=== PATIENT | female | born 1940 | race Caucasian/White ===

== ENCOUNTER → 2018-07-04 | Outpatient (REF) | payer MEDICARE ==
[~2018-07-04] MED LIST: ADLT ASA LOW81 MG PO; ALBUTEROL90 MCG IN; AVELOX400 MG PO; CELLCEPT500 MG OR; CHANTIX1 MG OR; CRESTOR10 MG OR; GLYCOLAX3350 N1 OR; LEVOTHYROXIN75 MCG OR; LEVOTHYROXIN88 MC1 PO; LISINOP/HCTZ1 TA1 OR; MESTINON60 MG PO; NAPROSYN500 MG OR; PRAVASTATIN40 MG PO; PREDNISONE10 MG PO; PREDNISONE20 MG PO; PRILOSEC20 MG OR; SPIRIVA IN; [UNRECOGNIZED DRUG - CODE]
== END | disposition home or self-care (01) ==
LOC: DI 11:59
PROVIDERS: ATTEND Physician Assistant Medical
DX: R06.2 Wheezing (principal)

== ENCOUNTER → 2018-07-07 | Outpatient (REF) | payer MEDICARE ==
[2018-07-07 07:56] LABS: HEMOGLOBIN 12.7 g/dl (12.0-16.0); IMMATURE GRANULOCYTES 0.7 % (0.0-5.0); MEAN CELL VOLUME 96.4 fL CALC (80.0-100.0); MEAN CORPUSCULAR HGB 30.6 pG CALC (26.0-32.0); MEAN CORPUSCULAR HGB CONC 31.8 g/L CALC (32.0-36.0); NEUT# 3.91 thou/uL (2.00-7.15); RED BLOOD COUNT 4.15 mill/uL (4.20-5.60); RED CELL DISTRI WIDTH 13.2 % (11.5-15.5)
[2018-07-07 08:15] LABS: ALBUMIN 4.3 g/dL (3.2-5.0); ALKALINE PHOSPHATASE 57 u/l (38-126); ANION GAP 14 (6-22 (CALC)); BILIRUBIN, TOTAL 0.4 mg/dL (0.0-1.4); BUN 28 mg/dL (8-23); BUN/CREATININE RATIO 34 (12-20 (CALC)); CALCULATED LDLCHOLESTEROL 110 mg/dL (62-129 (CALC)); CARBON DIOXIDE 31 mmol/l (22-30); CHLORIDE 96 mmol/l (95-108); CHOLESTEROL HDL RATIO 2.8 (<4.4 (CALC)); CREATININE 0.8 mg/dL (0.5-1.0); GFR > 60 ML/MIN (>=60 (CALC)); GFR FOR AFR.AMER. > 60 ML/MIN (>=60 (CALC)); HDL CHOLESTEROL 73 mg/dL (>=40); SGOT/AST 16 u/l (9-36); SODIUM 136 mmol/l (137-146); TOTAL CHOLESTEROL 205 mg/dl (0-199); TOTAL PROTEIN 6.6 g/dL (6.3-8.2); TOTAL TRIGLYCERIDES 110 mg/dl (30-149); VLDL CHOLESTROL 22 mg/dl (0-48 (CALC))
[2018-07-07 08:45] LABS: TSH, 3RD GENERATION 1.37 uIU/mL (0.47 - 4.68)
== END | disposition home or self-care (01) ==
LOC: LAB 07:33
PROVIDERS: ATTEND Internal Medicine
DX: E03.9 Hypothyroidism, unspecified (principal); I10 Essential (primary) hypertension

== ENCOUNTER 2019-07-08 | Day surgery (SDC) | payer MEDICARE ==
[~2019-07-08] MED LIST changes: +HYZAAR1 TA1 PO; +MICONAZOLE EX; +MYRBETRIQ50 MG PO; +OMEGA 3-6-9 COMPLEX PO; +PROCRIT2000 UNIT/; +PROTONIX40 M2 PO; +SILDENAFIL CITR25 MG PO; +SPIRIVA HANDIH18 MCG IN; +SPIRONOLACT25 MG PO; +[UNRECOGNIZED DRUG - CODE] EX
== END 2019-07-08 10:55 | disposition home or self-care (01) ==
PROC: 0DBE8ZX Excision of Large Intestine, Via Natural or Artificial Opening Endoscopic, Diagnostic (ICD-10-PCS; principal; 2019-07-08)
DX: K57.31 Diverticulosis of large intestine without perforation or abscess with bleeding (principal); Q43.8 Other specified congenital malformations of intestine; K64.4 Residual hemorrhoidal skin tags; K64.8 Other hemorrhoids; J44.9 Chronic obstructive pulmonary disease, unspecified; Z99.81 Dependence on supplemental oxygen

== ENCOUNTER 2020-01-25 11:23 | Inpatient (IN) | payer MEDICARE ==
[~2020-01-25] VITALS: Ht 157.5 cm; Wt 73.5 kg
--- NOTE | 2020-01-25 11:23 | NUR ---
TO ROOM 16 VIA WHEELCHAIR FOR BEDSIDE TRIAGE.
--- NOTE | 2020-01-25 12:30 | NUR ---
PT RESTING ON STRETCHER WITH HOB ELEVATED. RESPS LABORED ON O2 VIA NC, MONITORS ATTACHED. CALL LIGHT WITHIN REACH.
[2020-01-25 12:52] LABS: HEMATOCRIT 39.5 % (37.0-47.0); HEMOGLOBIN 12.4 g/dl (12.0-16.0); IMMATURE GRANULOCYTES 0.2 % (0.0-5.0); MEAN CELL VOLUME 90.6 fL CALC (80.0-100.0); MEAN CORPUSCULAR HGB 28.4 pG CALC (26.0-32.0); MEAN CORPUSCULAR HGB CONC 31.4 g/dL CAL (32.0-36.0); NEUT# 4.07 thou/uL (2.00-7.15); RED BLOOD COUNT 4.36 mill/uL (4.20-5.60); RED CELL DISTRI WIDTH 12.4 % (11.5-15.5)
[2020-01-25 13:02] LABS: INTERNATIONAL NORMALIZED RATIO 1.1 RATIO (0.7-1.3)
[2020-01-25 13:06] LABS: ALKALINE PHOSPHATASE 61 u/l (38-126); ANION GAP 13 (6-22 (CALC)); BUN 20 mg/dL (8-23); BUN/CREATININE RATIO 26 (12-20 (CALC)); CARBON DIOXIDE 27 mmol/l (22-30); CHLORIDE 94 mmol/l (95-108); CREATININE 0.8 mg/dL (0.5-1.0); GFR > 60 ML/MIN (>=60 (CALC)); GFR FOR AFR.AMER. > 60 ML/MIN (>=60 (CALC)); POTASSIUM 3.7 mmol/l (3.5-5.1); SODIUM 130 mmol/l (137-146); TOTAL PROTEIN 6.8 g/dL (6.3-8.2)
[2020-01-25 13:07] LABS: SGOT/AST 35 u/l (9-36)
[2020-01-25 13:17] LABS: MYOGLOBIN 117 ng/mL (0 - 62)
--- NOTE | 2020-01-25 14:05 | NUR ---
TO RADIOLOGY ON O2 VIA NC IN STABLE CONDITION VIA STRTECHER.
[2020-01-25 14:11] LABS: C-REACTIVE PROTEIN 8.8 mg/dL (0-0.9)
[2020-01-25 14:13] LABS: URINE BLOOD DIPSTICK SMALL (NEGATIVE); URINE GLUCOSE - DIPSTICK NEGATIVE (NEGATIVE); URINE KETONE TRACE mg/dL (NEGATIVE); URINE NITRITE - DIPSTICK NEGATIVE (Negative); URINE PH 5.5 (4.5-8.0); URINE PROTEIN - DIPSTICK NEGATIVE (NEG-TRACE)
[2020-01-25 14:15] LABS: URINE BILIRUBIN - DIPSTICK SMALL (NEGATIVE); URINE COLOR DK. YELLOW; URINE LEUK ESTERASE SMALL (NEGATIVE)
[2020-01-25 14:16] LABS: URINE BACTERIA FEW hpf; URINE EPITHELIAL CELLS FEW EPI/hpf (0-FEW)
--- NOTE | 2020-01-25 14:28 | NUR ---
RETURNED FROM RADIOLOGY VIA STRETCHER. PT UNABLE TO LAY FLAT ENOUGH FOR EXAM. MD NOTIFIED.
--- NOTE | 2020-01-25 15:30 | NUR ---
PT RESTING ON STRETCHER WITH HOB ELEVATED. RESPS LABORED ON O2 VIA NC. NO NEEDS VOICED AT THIS TIME.
--- NOTE | 2020-01-25 16:30 | NUR ---
ASSISTED PT TO BEDSIDE COMMODE.
--- NOTE | 2020-01-25 16:38 | NUR ---
NURSE TO NURSE REPORT CALLED TO EMILI DASH.
--- NOTE | 2020-01-25 16:40 | NUR ---
TO ROOM 281 ON O2 VIA NC VIA STRETCHER.
--- NOTE | 2020-01-25 16:51 | NUR ---
PT ARRIVED TO UNIT VIA WHEELCHAIR IN STABLE CONDITION; ALERT AND ORIENTED. ADMITTED TO AIRBORNE/CONTACT PRECAUTIONS FOR POSITIVE COVID RESULTS OUTPATIENT. AMBULATED TO BED WITH UNSTEADY GAIT; ADMITS TO AMBULATING WITH WALKER AT HOME. C/O GENERALIZED CHRONIC PAIN THAT IS MILD. RESPIRATIONS LABORED WITH EXERTION; RPM 30; SPO2 93% ON 5L ON OXYGEN. PT WEARS 3L OF O2 AT HOME WHILE AT REST; REPORTS INCREASING UP TO 5L AT HOME WHEN SHE FEELS IT IS NECESSARY. VSS. LUNG SOUNDS ARE DIMINISHED; TRACE EDEMA TO ANKLES. NON PRODUCTIVE COUGH. ORIENTED TO R00M AND CALL LIGHT SYSTEM. PLAN OF CARE DISCUSSED. PT ENCOURAGED TO VERBALIZE CONCERNS. STATES UNDERSTANDING. SAFETY MEASURES IN PLACE. CALL LIGHT WITHIN REACH.
[2020-01-25 17:00] VITALS: BP 123/59
--- NOTE | 2020-01-25 17:00 | NUR ---
SLOAN BUTLER AT BEDSIDE. PT ADMITS TO LEFT MASTECTOMY; LEFT LIMP ALERT APPLIED. PT REPORTS DIARRHEA AND WEARS PADS FOR RECTAL BLEEDING WHICH SHE STATES IS FROM IRRIATED HEMORHOIDS.
--- NOTE | 2020-01-25 18:14 | NUR ---
DAUGHTER CALLED FOR UPDATE ON ADMISSION; QUESTIONS ABOUT ADMISSION ANSWERED. , ALEXIS, UPDATED ON ADMISSION WELL.
[2020-01-25 18:45] VITALS: BP 119/59
--- NOTE | 2020-01-25 19:00 | NUR ---
RECEIVED REPORT FROM ED PATIENT AWAKE WATCHING TV, DENIES PAIN OR DISCOMFORT REMAINS ON ISOLATION PRECAUTION, CALL LIGHT AT REACH.
[2020-01-25 19:32] VITALS: BP 118/63
--- NOTE | 2020-01-25 20:23 | NUR ---
RECEIVED PHONE CALL FROM ED PATIENT TELE AFIBE, NO PAST MEDICAL HX OF AFIB, V/S TAKEN AND EKG ORDERED, NOTIFIED DR. PULLIAM, NO NEW ORDERS MADE AT THIS TIME. WILL CONTINUE TO MONITOR.
[2020-01-26] VITALS (21 sets, daily range): BP systolic 93–139; BP diastolic 50–76
--- NOTE | 2020-01-26 | NUR ---
PATIENT RESTING IN BED WITH EYE SCLOSED, BREATHING SHALLOW UNLABORED, REMAINS ON O2 @ 5LPM VIA NC CALL LIGHT AT REACH.
--- NOTE | 2020-01-26 03:31 | NUR ---
CALLED DR. PEREZ informed of pox 86-89 % on 5lpm via nc, lung sounds diminished with orders to send to icu.
--- NOTE | 2020-01-26 04:00 | NUR ---
PATIENT TRANSPORTED VIA BED, REPORT GIVEN TO NURSE NAVARRO.
--- NOTE | 2020-01-26 04:09 | NUR ---
TO ICU VIA BED PT DESATURATING.O2 AT 5L/MIN VIA N/C. PT STATES SHE USES 3-5 LITER OF O2 AT HOME ALL OF THE TIME. VERY TALKATIVE. NEEDED REMINDING TO STOP TALKING AND BREATHE THROUGH MOUTH. WHEN PT CALMS AND STOPS TALKING SAT INCREASED TO 93%. REPORTED COVID POSITIVE AT DOCTOR'S OFFICE 01/21/20 AND IGG POSITIVE ON ADMISSION. LEFT LINB ALERT DUE TO MASTECTOMY 30+ YEARS AGO. HL RIGHT A/C.
--- NOTE | 2020-01-26 04:13 | NUR ---
HOB ELEVATED. PT REPORTS SHE CANNOT HAVE HEAD ANY LOWER THAN IT IS NOW-60 DEGREES
--- NOTE | 2020-01-26 04:17 | NUR ---
PT WANTED TO GET UP TO BSC, BUT AGREED TO USE BEDPAN SHE IS SO SOB. SHE ATTEMPTED TO VOID. DURING WHICH TIME O2 SAT DECREASED TO 84%. FINALLY, ESCOTO REMOVED AND PT RESTING. COACHED TO BREATHE IN THROUGH NOSE AND OUT THROUGH PURSED LIPS. WITH IN A MINUTE OR TWO, SAT INCREASED TO 92% AND BREATHING EASED. REMAINS ON AIRBORNE PRECAUTIONS. IN ICU 1.
--- NOTE | 2020-01-26 04:48 | NUR ---
LAB HERE FOR BLOOD DRAW RX-TOLERATED WELL. AFTER, PT ON BEDPAN WITH NO RESULTS OTHER THAN SAT DROPPED TO 85% WHILE ATTEMPTING TO VOID. OFFERED [employer] WHICH COLLECTS URINE. PT DECLINED STATING EVER TIME SHE URINATES, SHE HAS DIARRHEA BECAUSE OF ABT AND COVID. OFFERED [employer]AS, PT DECLINED AT THIS TIME. SHE ALSO SAID THAT SHE IS AFRAID TO GO TO SLEEP BECUAE SHE IS AFRAID THAT SHE WILL NOT WAKE
--- NOTE | 2020-01-26 04:59 | NUR ---
TRIED TO CALL PATIENT NEXT OF KIN, NO ANSWER LEFT VOICEMEIL TO CALL BACK.
[2020-01-26 05:00] LABS: ALBUMIN 3.7 g/dL (3.2-5.0); ALKALINE PHOSPHATASE 58 u/l (38-126); ANION GAP 14 (6-22 (CALC)); BILIRUBIN, TOTAL 0.6 mg/dL (0.0-1.4); BUN 17 mg/dL (8-23); BUN/CREATININE RATIO 28 (12-20 (CALC)); CARBON DIOXIDE 26 mmol/l (22-30); CHLORIDE 98 mmol/l (95-108); CREATININE 0.6 mg/dL (0.5-1.0); GFR > 60 ML/MIN (>=60 (CALC)); GFR FOR AFR.AMER. > 60 ML/MIN (>=60 (CALC)); POTASSIUM 3.8 mmol/l (3.5-5.1); SGOT/AST 32 u/l (9-36); SODIUM 135 mmol/l (137-146)
--- NOTE | 2020-01-26 05:01 | NUR ---
O2 SAT 92% WHILE BEDRESTING
--- NOTE | 2020-01-26 05:29 | NUR ---
SAT REMAINS 93% WHILE QUIETLY BEDRESTING WITH O2 AT 5L/MIN VIA N/C. PT REMAINS A.FIB AT 92.
[2020-01-26 06:10] LABS: HEMATOCRIT 38.9 % (37.0-47.0); HEMOGLOBIN 12.3 g/dl (12.0-16.0); MEAN CELL VOLUME 90.7 fL CALC (80.0-100.0); MEAN CORPUSCULAR HGB 28.7 pG CALC (26.0-32.0); MEAN CORPUSCULAR HGB CONC 31.6 g/dL CAL (32.0-36.0); NEUT# 0.68 thou/uL (2.00-7.15); RED BLOOD COUNT 4.29 mill/uL (4.20-5.60); RED CELL DISTRI WIDTH 12.2 % (11.5-15.5)
--- NOTE | 2020-01-26 06:27 | NUR ---
RESTING WITH EYES CLOSED SAT 94%. NO DISTRESS NOTED
--- NOTE | 2020-01-26 07:00 | NUR ---
REPORT RECEIVED FROM HARDY NAVARRO. PT RESTING IN BED SEMI FOWLERS; ALERT AND ORIENTED. C/O CHRONIC GENERALIZED PAIN. RESPIRATIONS SLIGHTLY LABORED WITH EXERTION OF TALKING; SPO2 91-93% ON 5L VIA NC. VSS. REMAINS ON AIRBORNE/CONTACT PRECAUTIONS FOR POSITIVE COVID RESULTS. PLAN OF CARE REVIEWED. PT ENCOURAGED TO VERBALIZE CONCERNS. STATES UNDERSTANDING. SAFETY MEASURES IN PLACE. CALL LIGHT WITHIN REACH.
--- NOTE | 2020-01-26 08:00 | NUR ---
ALL AM MEDICATIONS PROVIDED. PT REPOSITIONED INTO HIGH FOWLERS FOR BREAKFAST.
--- NOTE | 2020-01-26 08:19 | NUR ---
DR. OLIVEIRA AT BEDSIDE.
--- NOTE | 2020-01-26 09:09 | NUR ---
PT note Patient is screened for intervention and she may benefit from pulmonary toilet and increased activity with pulmonary monitoring if medical agrees
--- NOTE | 2020-01-26 09:25 | NUR ---
UP TO BSC FOR VOID AND SMALL LOOSE BOWEL MOVEMENT; ASSISTED WITH HYGIENE. PT DID DESAT TO 85% DURING EXERTION AND RETURNS TO 91-92% WITH REST. REPOSITIONED UP INTO BEDSIDE CHAIR; SET UP TO BRUSH TEETH. HAPPY TO BE SITTING UP. REPORTS DECREASED APPETITE. SINUS ARRHYTHMIA ON COMMUNITY MARKETING COORDINATOR WITH HEART RATE RANGING FROM 90S-120S; PAC'S, PVC'S, IVCD; HR IRREGULAR. WILL CONTINUE TO MONITOR.
--- NOTE | 2020-01-26 10:05 | NUR ---
FIRST DOSES OF DECADRON AND REMDESIVIR ADMINISTERED AND PT EDUCATED ON NEW MEDS. ALEXIS COLEMAN, CALLED AND UPDATED ON TRANSFER TO ICU; STATES UNDERSTANDING.
--- NOTE | 2020-01-26 11:19 | NUR ---
DR. CABEZAS AT [facility] BEDSIDE FOR HEMATOLOGY CONSULT.
--- NOTE | 2020-01-26 13:27 | NUR ---
AGAIN UP TO BSC AND BACK TO CHAIR. PLEASANT AND TALKATIVE. REMAINS ON 5L OXYGEN VIA NC; SPO2 89-93%. IV SITE APPEARS HEATLHY AND FLUSHES. NO REQUESTS OR CONCERNS AT THIS TIME. CALL LIGHT WITHIN REACH.
--- NOTE | 2020-01-26 15:15 | NUR ---
LAB AT BEDSIDE. LEVAQUIN INFUSING WITHOUT DIFFICULTY; IV SITE APPEARS HEALTHY.
[2020-01-26 15:17] LABS: HEMATOCRIT 40.5 % (37.0-47.0); HEMOGLOBIN 12.9 g/dl (12.0-16.0); IMMATURE GRANULOCYTES 0.2 % (0.0-5.0); MEAN CELL VOLUME 89.6 fL CALC (80.0-100.0); MEAN CORPUSCULAR HGB 28.5 pG CALC (26.0-32.0); MEAN CORPUSCULAR HGB CONC 31.9 g/dL CAL (32.0-36.0); NEUT# 4.11 thou/uL (2.00-7.15); RED BLOOD COUNT 4.52 mill/uL (4.20-5.60); RED CELL DISTRI WIDTH 12.2 % (11.5-15.5)
--- NOTE | 2020-01-26 19:00 | NUR ---
REPORT RECEIVED FROM Mariama DE LOS SANTOS RN, CARE OF PT ASSUMED AT THIS TIME.
--- NOTE | 2020-01-26 19:45 | NUR ---
PT SITTING UP IN CHAIR, REPORTS SHE SLEEPS BETTER SITTING UP AND PLANS TO STAY IN CHAIR FOR THE NIGHT. PT STATES SHE IS UNABLE TO TOLERATE PRONE POSITION WHEN EDUCATED ON LAYING PRONE TO MAXIMIZE PULMONARY EXPANSION. WITNESSED PT UP TO BSC INDEPENDENTLY, PT'S GAIT IS STEADY AND BALANCED. PT CONSUMED APPROX 75% OF DINNER MEAL TRAY, REQUESTS REMAINDER TO BE TAKEN AWAY. REPORTS POOR APPATITE AND LOOSE STOOLS. PT ATTRIBUTES LOOSE STOOLS TO CELLCEPT. REPORTS FREQUENT VOIDING WITH SMALL AMOUNTS. BSC EMPTIED OF APPROX 100ML CLEAR YELLOW URINE AND SCANT AMOUNT SOFT STOOL. NASAL CANNULA @ 5L/min SWITCHED TO A HIGH FLOW NASAL CANNULA WITH FIO2 OF 5L/min HUMIDIFIED. PHYSICAL ASSESMENT COMPLETE. PLAN OF CARE REVIEWED. PT DENIES QUESTIONS AND VERBALIZES UNDERSTANDING. DENIES FURTHER NEEDS AT THIS TIME. CALL DODSON WITHIN REACH, AGREES TO CALL PRN. UNDERSTANDING.
--- NOTE | 2020-01-26 20:54 | NUR ---
PT HAS CELLCEPT SCRIPT FROM HOME, SCRIPT HAS BEEN LABELED AND BARCODED BY PHARMACY. DIRECTIONS ON BOTTLE STATES 500MG (1TAB) PO BID. DIRECTIONS ON PHARMACY LABEL STATES 1000MG (2 TABS) PO BID. Amadeo BREWER RN CALLS Amadeo Hall PharmD TO CLARIFY. PER Amadeo Hall DOSE HAS BEEN CLARIFIED WITH PRESCRIBING DOCTORS OFFICE, DR. BEACH. STATES MEDICATION TO BE ADMINISTERED PER E-MAR AND PHARMACY PRINTED LABEL.
--- NOTE | 2020-01-26 21:14 | NUR ---
SCHEDULED MEDICATIONS ADMINISTERED. PT REPORTS SHE IS ONLY MEANT TO TAKE ONE 500MG CELLCEPT. REPORTED TO PT THAT DOSE HAS BEEN CLARIFIED WITH PHARMACIST AND DR. BEACH (PRESCRIBING MD). PT AGREES TO TAKE DOSE. SEE E-MAR. BEDSIDE COMMODE EMPTIED OF SMALL AMOUNT CLEAR YELLOW URINE AND SCANT AMOUNT SOFT STOOL. DENIES FURTHER NEEDS, CALL DODSON WITHIN REACH, AGREES TO CALL PRN.
--- NOTE | 2020-01-26 22:33 | NUR ---
SCHEDULED MEDICATION ADMINISTERED, SEE E-MAR. NEW TOILET PAPER ROLL AND MOUTH/LIP MOISTUREIZURE PER HER REQUEST. DENIES FURTHER NEEDS, CALL DODSON WITHIN REACH, AGREES TO CALL PRN.
--- NOTE | 2020-01-26 23:17 | NUR ---
PHARMACY CONSULT ENTERED FOR FURTHER CLARIFICATION ON CELLCEPT DOSE TO REASSURE PT OF CORRECT DOSE.
[2020-01-27] VITALS (33 sets, daily range): BP systolic 71–137; BP diastolic 46–83
--- NOTE | 2020-01-27 00:09 | NUR ---
PT SITTING UP IN RECLINER, WATCHING TV, DENIES NEEDS AT THIS TIME. CALL DODSON WITHIN REACH, AGREES TO CALL PRN.
--- NOTE | 2020-01-27 02:00 | NUR ---
PT SITTING UP IN CHAIR, APPEARS TO BE SLEEPING COMFORTABLY, NO APPARENT DISTRESS, RESPIRATIONS REGULAR AND UNLABORED. CALL DODSON REMAINS WITHIN REACH.
--- NOTE | 2020-01-27 04:02 | NUR ---
PT SITTING UP IN CHAIR, APPEARS TO BE SLEEPING COMFORTABLY, NO APPARENT DISTRESS, RESPIRATIONS REGULAR AND UNLABORED. CALL DODSON REMAINS WITHIN REACH.
--- NOTE | 2020-01-27 04:29 | NUR ---
SUPPORT SERVICE TECH VALARIE IN ROOM TO COLLECT AM LABS
[2020-01-27 04:50] LABS: HEMATOCRIT 43.4 % (37.0-47.0); HEMOGLOBIN 13.7 g/dl (12.0-16.0); IMMATURE GRANULOCYTES 0.4 % (0.0-5.0); MEAN CELL VOLUME 89.9 fL CALC (80.0-100.0); MEAN CORPUSCULAR HGB 28.4 pG CALC (26.0-32.0); MEAN CORPUSCULAR HGB CONC 31.6 g/dL CAL (32.0-36.0); NEUT# 8.47 thou/uL (2.00-7.15); RED BLOOD COUNT 4.83 mill/uL (4.20-5.60); RED CELL DISTRI WIDTH 12.2 % (11.5-15.5)
--- NOTE | 2020-01-27 05:00 | NUR ---
BSC EMPTIED OF CLEAR YELLOW URINE, SCANT AMOUNT OF SOFT STOOL, AND TOILET PAPER. DENIES FURTHER NEEDS. CALL DODSON WITHIN REACH, AGREES TO CALL PRN.
[2020-01-27 05:12] LABS: ALBUMIN 4.2 g/dL (3.2-5.0); ALKALINE PHOSPHATASE 60 u/l (38-126); ANION GAP 16 (6-22 (CALC)); BILIRUBIN, TOTAL 0.5 mg/dL (0.0-1.4); BUN 30 mg/dL (8-23); BUN/CREATININE RATIO 41 (12-20 (CALC)); C-REACTIVE PROTEIN 5.2 mg/dL (0-0.9); CARBON DIOXIDE 25 mmol/l (22-30); CHLORIDE 98 mmol/l (95-108); CREATININE 0.7 mg/dL (0.5-1.0); GFR > 60 ML/MIN (>=60 (CALC)); GFR FOR AFR.AMER. > 60 ML/MIN (>=60 (CALC)); POTASSIUM 4.1 mmol/l (3.5-5.1); SGOT/AST 40 u/l (9-36); SODIUM 135 mmol/l (137-146); TOTAL PROTEIN 6.8 g/dL (6.3-8.2)
--- NOTE | 2020-01-27 06:45 | NUR ---
PT'S DAUGHTER CALLS REQUESTING PRIVILEGES TO SEE PT DESPITE HOSPITAL POLICY REGARDING COVID POSITIVE PATIENTS. ADVISED DAUGHTER HER REQUEST WOULD BE ENDORSED TO CLINICAL GLASS BULB SILVERER. MESSAGE ENDORSED TO Elizabeth CHAVEZ RN WITH REPORT AND ENDORSED TO Fabián BAHENA RN, CLINICAL GLASS BULB SILVERER.
--- NOTE | 2020-01-27 07:52 | NUR ---
PT REPORTS ALLERGY TO PENICILLIN. MEROPENEM ORDERED FOR ESBL E COLI UTI DESPITE ALLERGY AND POSSIBILITY FOR CROSS SENSITIVITY. SPOKE WITH LUKE, WOULD LIKE TO GIVE MEROPENEM. SPOKE WITH CHU, ASKED TO MONITOR PT FOR S/SX OF ALLERGIC RXN.
--- NOTE | 2020-01-27 08:00 | NUR ---
PT SEEN AWAKE, ALERT, ORIENTED X 3, OOB IN CHAIR AT BEDSIDE. LUNGS ARE CLEAR, PT USES 5 LPM NC, SEEN TO DESAT INTO THE 80s WITH MINIMAL EXERTION. PT IS ABLE TO TRANSFER HERSELF TO BSC SAFELY. MINIMAL PEDAL EDEMA NOTED, PT ATTRIBUTES TO SITTING UP WITH FEET DOWN. HR SEEN IRREGULAR AND RAPID INTO THE 130s, DOES NOT AFFECT PT'S SHORTNESS OF BREATH. BREAKFAST PROVIDED, PT ATE MINIMAL AMOUNT.
--- NOTE | 2020-01-27 10:05 | NUR ---
PT RECEIVING MEROPENEM WITHOUT ADVERSE REACTION TO THIS POINT. PT ALSO PROVIDED WITH MESH PANTIES AND ABD PADS FOR PERSONAL HYGIENE. DR PEREZ AND LUKE PIKE HAVE SEEN PT, AWAITING CONSULT FROM DR WESLEY ON TELEMEDICINE.
--- NOTE | 2020-01-27 10:41 | NUR ---
DAUGHTER ARIANA HAS ARRIVED FOR A VISIT.
--- NOTE | 2020-01-27 11:59 | NUR ---
PT'S DAUGHTER ARIANA HAS GONE, VISIT WENT WELL. PT SEEN TO BE IN RAPID HR IN THE 130-150 RANGE, RECEIVABLE EXECUTIVE AWARE, EKG ORDERED.
--- NOTE | 2020-01-27 13:11 | NUR ---
CONSULT WITH DR WESLEY BEING COMPLETED VIE TELEHEALTH AT THIS TIME.
--- NOTE | 2020-01-27 13:29 | NUR ---
PT BOLUSED WITH CARDIZEM 10 MG IVP , BP DROPPED INTO THE 70s, ASYMPTOMATIC. GLENDY BUTLER NOTIFIED. HR SLIGHTLY IMPROVED, 110 RANGE.
--- NOTE | 2020-01-27 16:16 | NUR ---
FURTHER ATTEMPT MADE TO RESTART CARDIZEM DRIP, THIS TIME AT 2.5 MG/HR. WILL MONITOR CLOSELY. HR REMAINS IN THE LOW 100s, BPs AROUND 90 SYSTOLIC.
--- NOTE | 2020-01-27 18:04 | NUR ---
CARDIZEM DRIP CONTINUES AT 2.5 MG/HR, HR REMAINS UNDER 125-130 AT FASTEST. PT ENJOYED SUPPER, WHICH WAS MOSTLY LIQUIDS. NO REPORT OF SHORTNESS OF BREATH, NO FEVER. DAUGHTER ELIZ CALLED AND WAS UPDATED ON PT STATUS.
--- NOTE | 2020-01-27 19:00 | NUR ---
REPORT RECEIVED FROM Elizabeth CHAVEZ RN, CARE OF PT ASSUMED AT THIS TIME.
--- NOTE | 2020-01-27 19:30 | NUR ---
PT SITTING UP IN BED, TALKING ON CELLPHONE, NO APPARENT DISTRESS, APPEARS COMFORTABLE. CALL DODSON WITHIN REACH.
--- NOTE | 2020-01-27 20:00 | NUR ---
SITTING UP IN CHAIR SLEEPING, WAKES EASILY. PHYSICAL ASSESMENT COMPLETE. PT DENIES NEEDS AT THIS TIME. PLAN OF CARE REVIEWED. PT VERBALIZES UNDERSTANDING AND DENIES QUESTIONS. CALL DODSON WITHIN REACH, AGREES TO CALL PRN.
--- NOTE | 2020-01-27 20:45 | NUR ---
SCHEDULED MEDICATIONS ADMINISTERED, SEE E-MAR. SBP IN THE 70'S, AFIB 80'S-90'S. CARDIZEN GTT STOPPED. WILL CONTINUE TO MONITOR.
--- NOTE | 2020-01-27 23:02 | NUR ---
SCHEDULED MEDICATION ADMINISTERED, SEE E-MAR. FRESH WATER PROVIDED. BSC EMPTIED OF CLEAR YELLOW URIN AND SCANT ANOUNT SOFT BROWN STOOL AND TOILET PAPER. DENIES FURTHER NEEDS. CALL DODSON WITHIN REACH, AGREES TO CALL PRN.
[2020-01-28] VITALS (19 sets, daily range): BP systolic 78–147; BP diastolic 45–73
--- NOTE | 2020-01-28 01:43 | NUR ---
BLANKETS AND PILLOWS ON PTS CHAIR REPOSITIONED FOR COMFORT PER PT'S REQUEST. DENIES FURTHER NEEDS, CALL DODSON WITHIN REACH, AGREES TO CALL PRN.
--- NOTE | 2020-01-28 03:15 | NUR ---
WARM BLANKET PROVIDED FOR PT BY Amadeo DODD RN PER PTS REQUEST.
--- NOTE | 2020-01-28 04:28 | NUR ---
PT SITTING UP IN CHAIR, APPEARS TO BE SLEEPING COMFORTABLY, NO APPARENT DISTRESS, RESPIRATIONS REGULAR AND UNLABORED. CALL DODSON REMAINS WITHIN REACH.
--- NOTE | 2020-01-28 04:55 | NUR ---
FORENSIC ACCOUNTANT VALARIE IN ROOM TO COLLECT AM LABS.
[2020-01-28 05:17] LABS: HEMATOCRIT 41.6 % (37.0-47.0); HEMOGLOBIN 13.4 g/dl (12.0-16.0); IMMATURE GRANULOCYTES 0.6 % (0.0-5.0); MEAN CELL VOLUME 89.8 fL CALC (80.0-100.0); MEAN CORPUSCULAR HGB 28.9 pG CALC (26.0-32.0); MEAN CORPUSCULAR HGB CONC 32.2 g/dL CAL (32.0-36.0); NEUT# 5.37 thou/uL (2.00-7.15); RED BLOOD COUNT 4.63 mill/uL (4.20-5.60); RED CELL DISTRI WIDTH 12.5 % (11.5-15.5)
[2020-01-28 05:26] LABS: ALBUMIN 3.9 g/dL (3.2-5.0); ALKALINE PHOSPHATASE 59 u/l (38-126); ANION GAP 15 (6-22 (CALC)); BILIRUBIN, TOTAL 0.5 mg/dL (0.0-1.4); BUN 30 mg/dL (8-23); BUN/CREATININE RATIO 46 (12-20 (CALC)); CARBON DIOXIDE 23 mmol/l (22-30); CHLORIDE 101 mmol/l (95-108); CREATININE 0.7 mg/dL (0.5-1.0); GFR > 60 ML/MIN (>=60 (CALC)); GFR FOR AFR.AMER. > 60 ML/MIN (>=60 (CALC)); MAGNESIUM 2.1 mg/dL (1.6-2.3); POTASSIUM 4.2 mmol/l (3.5-5.1); SGOT/AST 28 u/l (9-36); SODIUM 134 mmol/l (137-146); TOTAL PROTEIN 6.5 g/dL (6.3-8.2)
--- NOTE | 2020-01-28 07:55 | NUR ---
ASSESSMENT IS COMPLETED: IV SITE IS FREE FROM REDNESS OR EDEMA. HR IS REG,PULSES ARE STRONG X4, ABD IS SOFT WITH ACTIVE BS. BREATH SOUNDS ARE CLEAR AND DIMINSHED. O2 @ 5 LITERS WITH NC. HRT MONITOR IN PLACE. CONTINUE TO OBSERVE AND MONITOR.
--- NOTE | 2020-01-28 08:30 | NUR ---
HEART RATE ELEVATED DURING REST IN THE 120'S; WHEN UP TO BSC HR INCREASES INTO THE 170'S; SOB ON EXERTION WELL; PT STATES THAT SHE IS OK AND BESIDES SOB SHE IS OTHERWISE ASMPTOMATIC. DR. ALFARO NOTIFIED OF TACHYCARDIA.
--- NOTE | 2020-01-28 09:00 | NUR ---
DR. PEREZ AND SLOAN BUTLER AT BEDSIDE FOR EVAL. VERBAL ORDERS RECEIVED.
--- NOTE | 2020-01-28 10:00 | NUR ---
PO CARDIZEM ADMINISTERED PER ORDERS FOR TACHYCARDIA; PT NOW SITTING UP IN BEDSIDE CHAIR. PULMICORT INHALER ALSO GIVEN AND EDUCATED ON. PT REQUESTS FOR IV SITE TO RAC BE CHANGED OR REPLACED; SITE D/C'D AND NEW SITE STARTED TO RIGHT WRIST; PT TOLERATED WELL. SITE APPEARS HEATLHY AND FLUSHES WITH GOOD BLOOD RETURN. WILL CONTINUE TO MONITOR.
--- NOTE | 2020-01-28 10:21 | NUR ---
HEART RATE CURRENTLY 107-118 AND IRREGULAR. SPO2 94% ON 5L VIA NC AT REST. UP TO BSC INDEPENDENLTY TO VOID; AWARE TO CALL FOR ASSISTANCE NEEDED. CALL LIGHT WITHIN REACH.
--- NOTE | 2020-01-28 11:13 | NUR ---
DAUGHTER CALLED FOR UPDATE; QUESTIONS ANSWERED TO SATISFACTION.
--- NOTE | 2020-01-28 12:00 | NUR ---
PT IS RELAXING IN THE CHAIR NO DISTRESS NOTED. IV SITE IS FREE FROM REDNESS OR EDEMA
--- NOTE | 2020-01-28 14:14 | NUR ---
PT IS RESTING IN THE CHAIR NO DISTRESS NOTED,. HR IS IN THE 80'S NOW
--- NOTE | 2020-01-28 16:00 | NUR ---
RT IS CHANGING THE O2 BOTTLE FOR HUMIDIFIED WATER. PT CONTINUES TO SIT IN THE CHAIR.
--- NOTE | 2020-01-28 18:00 | NUR ---
PT IS RELAXING IN THE CHAIR, NO DISTRESS NOTED. IV SITE IS FREE FROM REDNESS OR EDEMA.
--- NOTE | 2020-01-28 19:00 | NUR ---
REPORT RECEIVED FROM AM NURSE. PATIENT CURRENTLY ON CHAIR. PATIENT APPEARS COMFORTABLE. PATIENT VITALS STABLE. WILL CONTINUE TO MONITOR.
--- NOTE | 2020-01-28 20:00 | NUR ---
PATIENT ASSESSMENT COMPLETED. PATIENT ALERT AND ORIENTED X3. NASAL CANNULA 5L. PATIENT SKIN INTACT, SWELLING IN [place] LOWER EXT. PATIENT WITH NO SIGNS OF DISTRESS. PERIPHERAL IV. FLUIDS INFUSING KVO. PATIENT VITALS STABLE. HEART RATE RANGING FROM 90-100'S, HIGHER WITH EXERTION. WILL CONTINUE TO MONITOR.
--- NOTE | 2020-01-28 21:00 | NUR ---
PATIENT CONTINUES IN CHAIR. PATIENT STATES SHE SLEEPS IN CHAIR. PATIENTS TRANSFERR[place] [facility] [place]IENTS CHAIR LINENS REARRANGED. PATIENT ASSISTED BACK TO CHAIR. PATIENT BLOOD PRESSURE STABLE. CONTINUE ON NC 5L. WILL CONTINUE TO MONITOR.
--- NOTE | 2020-01-28 21:06 | NUR ---
PATIENT ROUNDED ON. PATIENT CONTINUES SITTING IN CHAIR. PATIENT WITH NO COMPLAINTS OF PAIN OR DISCOMFORT. PATIENT CONTINUES ON NC 5L. PATIENT IN NO DISTRESS. WILL CONTINUE TO MONITOR.
--- NOTE | 2020-01-28 22:00 | NUR ---
PATIENT IN CHAIR. PATIENT WITH NO REQUEST AT THE MOMENT. NO COMPLAINTS OF PAIN. CONTINUE TO NC 5L. WILL CONTINUE TO MONITOR.
--- NOTE | 2020-01-28 23:00 | NUR ---
PATIENT RESTING IN CHAIR. PATIENT WITH NO REQUEST AT THIS TIME. NO CHANGES TO O2, CONTINUES WITH 5L NC. NO PAIN OR DISCOMFORT. WILL CONTINUE TO MONITOR.
[2020-01-29] VITALS (21 sets, daily range): BP systolic 75–135; BP diastolic 41–90
--- NOTE | 2020-01-29 | NUR ---
PATIENT REQUESTING BLANKET. PATIENT WITH NO COMPLAINTS OF PAIN. PATIENTS HEART RATE STABLE IN THE 70'S. CONTINUES WITH PVCS. WILL CONTINUE TO MONITOR.
--- NOTE | 2020-01-29 02:00 | NUR ---
PATIENT SLEEPING IN CHAIR. PATIENTS CONTINUES WITH O2 SAT >92 ON NC 5L. PATIENT WITH NO SIGNS OF DISTRESS. PATIENT CONTINUES TO USE BSC. WILL CONTINUE TO MONITOR PATIENT.
--- NOTE | 2020-01-29 04:00 | NUR ---
PATIENT ROUNDED ON. PATIENT SLEEPING. PATIENT WITH NO SIGNS OF PAIN OR DISCOMFORT. PATIENT WITH NO REQUEST. PATIENT PROVIDED WITH BLANKET AND FRESH WATER. WILL CONTINUE TO MONITOR PATIENT.
[2020-01-29 05:30] LABS: HEMATOCRIT 40.5 % (37.0-47.0); IMMATURE GRANULOCYTES 0.6 % (0.0-5.0); MEAN CELL VOLUME 89.8 fL CALC (80.0-100.0); MEAN CORPUSCULAR HGB 28.8 pG CALC (26.0-32.0); MEAN CORPUSCULAR HGB CONC 32.1 g/dL CAL (32.0-36.0); NEUT# 4.08 thou/uL (2.00-7.15); RED BLOOD COUNT 4.51 mill/uL (4.20-5.60); RED CELL DISTRI WIDTH 12.5 % (11.5-15.5)
--- NOTE | 2020-01-29 06:02 | NUR ---
PATIENT ROUNDED ON. PATIENT AWAKE AND CONTINUES IN CHAIR. PATIENT WITH 450 VOID AND 1 SMALL BM. PATIENT ON NC 5L. PATIENT WITH NO REQUEST. PATIENT DENIES PAIN OR DISCOMFORT. WILL CONTINUE TO MONITOR.
[2020-01-29 06:26] LABS: ALBUMIN 3.5 g/dL (3.2-5.0); ALKALINE PHOSPHATASE 57 u/l (38-126); ANION GAP 12 (6-22 (CALC)); BILIRUBIN, TOTAL 0.5 mg/dL (0.0-1.4); BUN 32 mg/dL (8-23); BUN/CREATININE RATIO 48 (12-20 (CALC)); C-REACTIVE PROTEIN 1.6 mg/dL (0-0.9); CARBON DIOXIDE 25 mmol/l (22-30); CHLORIDE 102 mmol/l (95-108); CREATININE 0.7 mg/dL (0.5-1.0); GFR > 60 ML/MIN (>=60 (CALC)); GFR FOR AFR.AMER. > 60 ML/MIN (>=60 (CALC)); POTASSIUM 4.3 mmol/l (3.5-5.1); SGOT/AST 23 u/l (9-36); SODIUM 134 mmol/l (137-146); TOTAL PROTEIN 5.8 g/dL (6.3-8.2)
--- NOTE | 2020-01-29 07:01 | NUR ---
REPORT RECEIVED FROM HARDY FLOR. PT RESTING IN BEDSIDE CHAIR WITH NO SIGNS OF DISTRESS. SPO2 91% ON 5L VIA NC. SINUS RHYTHM/SINUS TACH ON FUEL OIL CLERK WITH WIDE QRS, PVCS AND PACS.
--- NOTE | 2020-01-29 08:00 | NUR ---
PT REMAINS ON AIRBORNE/CONTACT PRECAUTIONS FOR POSITIVE COVID RESULTS AND ESBL IN URINE. EXERTIONAL SOB; CURRENTLY 94% AT REST. UP TO BSC INDEPENDENTLY. LUNGS ARE CLEAR WITH DIMINISHED BASES; HEART RATE IRREGULAR; BS ACTIVE. CONTINUES TO HAVE LOOSE TO SOFT SMALL BOWEL MOVEMENTS; SPECIMEN OBTAINED FOR CDIFF TEST AND SENT TO LAB. ALL MEDICATIONS ADMINISTERED AT THIS TIME. MERREM INFUSING; IV SITE APPEARS HEALTHY AND FLUSHES. PLAN OF CARE REVIEWED. PT ENCOURAGED TO VERBALIZE CONCERNS. STATES UNDERSTANDING. SAFETY MEASURES IN PLACE. CALL LIGHT WITHIN REACH.
[2020-01-29 08:50] LABS: C. DIFFICILE TOXIN A&B NEGATIVE (NEGATIVE)
--- NOTE | 2020-01-29 10:06 | NUR ---
SMALL BOWEL INCONTINENCE WHILE UP IN CHAIR; ALL LINENS CHANGED AND PT ASSISTED WITH PARTIAL BATH AND HYGIENE. BRUSHED TEETH INDEPENDENTLY.
--- NOTE | 2020-01-29 10:30 | NUR ---
DR. PEREZ AND SLOAN BUTLER AT BEDSIDE FOR EVAL.
--- NOTE | 2020-01-29 12:50 | NUR ---
PT ATE 50% OF LUNCH; APETITE IS IMPROVING. VSS. CARDIAC RHYTHM CONTINUES TO BE VERY IRREGULAR; HEART RATE RANGING FROM 70-130S DEPENDING ON REST AND EXERTION. SPO2 96% AND UP TO 98% DURING REST; RESPIRATIONS REMAIN SLIGHTLY LABORED WITH REST. WILL CONTINUE TO MONITOR.
--- NOTE | 2020-01-29 13:08 | NUR ---
EKG COMPLETED WITH IMPRESSION OF AFIB RVR; DR. PEREZ NOTIFIED; AWAITING NEW ORDERS. PHYSICAL THERAPY ALSO ON UNIT FOR EVAL.
--- NOTE | 2020-01-29 13:45 | NUR ---
NEW ORDERS RECEIVED AFTER MD REVIEWED EKG TO DC LOVENOX AND BEGIN ELIQUIS BID. PT UPDATED.
--- NOTE | 2020-01-29 14:45 | NUR ---
AT 1419 NURSE WAS STANDING WITH PATIENT IN HER ROOM WHEN SHE DEVELOPED SEIZURE LIKE ACTIVITY; BODY BECAME TENSE WITH INVOLUNTARY SHAKING AND TURNING IN HER CHAIR FOR APPROXIMATELY 10 SECONDS; DURING THIS BRIEF TIME PATIENTS EYES ARE OPEN AND SHE IS ABLE TO SHAKE HER HEAD TO ANSWER MY QUESTIONS. WHEN SYMPTOMS SUBSIDE PT IS AGAIN ALERT AND ORIENTED; SLIGHTLY ANXIOUS DUE TO EVENTS. UPON REVIEWING ARTIFICIAL BREEDING TECHNICIAN PT READ ASYSTOLE DURING THIS TIME FOR 12 SECONDS AND RESTARTED IN SINUS YAMILEX 36; QUICKLY RETURNED TO AFIB IN THE 70S-80S. BLOOD PRESSURE 123/63 HEART RATE 90 RESPIRATIONS SLIGHTLY LABORED AT 37 PER MINUTE SPO2 93% ON 5L. PT ABLE TO STAND AND AMBULATE TO THE BED; REPOSITIONED SEMI FOWLERS IN BED AND EKG OBTAINED BY RT AT 1441 WITH IMPRESSION OF AFIB HR 94 LEFT AXIS DEVIATION LBBB. PACER PADS APPLIED FOR PRECAUTION. NEW TELEPHONE ORDERS RECEIVED FROM DR. PEREZ TO TRANSFER PATIENT TO [facility] WITH DX OF SSS. PT UPDATED ON NEW ORDERS; STATES UNDERSTANDING AND GIVES VERBAL CONSENT FOR TRANSFER.
--- NOTE | 2020-01-29 14:50 | NUR ---
PT note Patient is screened for PT intervention. According to nursing she has no needs at this time limited only by dyspnea
--- NOTE | 2020-01-29 15:38 | NUR ---
DAUGHTER UPDATED ON CHANGE IN PATIENT CONDITION AND NEW ORDERS VIA TELEPHONE. CURRENTLY AT BEDSIDE AND ALL QUESTIONS ANSWERED TO SATISFACTION.
--- NOTE | 2020-01-29 16:11 | NUR ---
DAUGHTER REQUESTING NURSE IN ROOM; PT IS TEARFUL AND STATING THAT SHE DOES NOT WANT TO GO TO [place]. PT EXPLAINED NECESITTY OF TRANSFER DUE TO HER UNSTABLE CARDIAC CONDITION AND SERVICES OFFERED AT [facility]. PT VERBALIZES TO MYSELF AND DAUGHTER "IF MY HEART STOPS IT STOPS. I DON'T WANT TO GO." PT QUESTIONED ABOUT HER ADVANCED DIRECTIVES AND CODE STATUS; SHE STATES THAT SHE WANTS TO BE A DNR AND AGAIN CONFIRMS AFTER EXPLANATION. DR. PEREZ NOTIFIED OF PATIENT WISHES AT 1551. TELEPHONE ORDERS RECEIVED TO CANCEL TRANSFER, HOLD CARDIZEM, AND OBTAIN ECHOCARDIOGRAM. PT REQUESTING XANAX; PROVIDED PER REQUEST.
--- NOTE | 2020-01-29 16:36 | NUR ---
DAUGHTER NO LONGER AT BEDSIDE. DISCUSSED WITH PATIENT HER CHANGE IN DECISION FOR TRANSPORT AND PT CONFIRMED THAT THE DECISION TO REMAIN AT [facility] A DNR WAS HER OWN AND WAS NOT INFLUENCED BY ANYONE ELSE. PT THEN SIGNED REFUSAL OF TRANSPORT FORM FOR CASE MANAGEMENT. PT IS ALERT AND ORIENTED X 4; VSS AT THIS TIME; AFIB HR 80S-90S. PT HAS NO REQUESTS OR CONCERNS AT THIS TIME; STATES THAT SHE DOES NOT WANT HER DINNER TRY BROUGHT TO HER. CALL LIGHT WITHIN REACH.
--- NOTE | 2020-01-29 17:05 | NUR ---
UP TO BSC WITH EXERTIONAL SOB; SPO2 DECREASED TO 87% AND RETURNED TO 94% WHEN BACK IN BED AT REST; REMAINS ON HUMIDIFIED HIGH FLOW NC. DRY COUGH CONTINUES. VOIDING CLEAR YELLOW URINE WITH SMALL SOFT STOOLS WITH EACH VOID.
--- NOTE | 2020-01-29 17:44 | NUR ---
GRAIN BROKER AND MARKET OPERATOR AT BEDSIDE.
--- NOTE | 2020-01-29 18:43 | NUR ---
CALLED AND UPDATED DAUGHTER PRIOR TO SHIFT REPORT. DAUGHTER THANKFUL AND APPRECIATIVE OF STAFF.
--- NOTE | 2020-01-29 19:00 | NUR ---
REPORT REVEIVED FROM Mariama DE LOS SANTOS RN, CARE OF PT ASSUMED AT THIS TIME.
--- NOTE | 2020-01-29 19:50 | NUR ---
PT CALLS REQUESTING BSC EMPTIED. BSC EMPTIED PER PTS REQUEST. SCHEDULED MEDICATIONS AND REQUESTED PRN MEDICATIONS ADMINISTERED, SEE E-MAR. PT DENIES FURTHER NEEDS. CALL DODSON WITHIN REACH, AGREES TO CALL PRN.
--- NOTE | 2020-01-29 20:00 | NUR ---
PHYSICAL ASSESMENT COMPLETE. PLAN OF CARE REVIEWED. PT DENIES QUESTIONS AND VERBALIZES UNDERSTANDING. CALL DODSON WITHIN REACH, AGREES TO CALL PRN.
--- NOTE | 2020-01-29 20:45 | NUR ---
FRESH WATER PROVIDED PER PTS REQUEST. PT DENIES FURTHER NEEDS. CALL DODSON WITHIN REACH, AGREES TO CALL PRN.
--- NOTE | 2020-01-29 22:30 | NUR ---
PT APPEARS TO BE SLEEPING COMFORTABLY, NO APPARENT DISTRESS, RESPIRATIONS REGULAR AND UNLABORED. CALL DODSON REMAINS WITHIN REACH.
[2020-01-30] VITALS (13 sets, daily range): BP systolic 92–136; BP diastolic 50–78
--- NOTE | 2020-01-30 00:19 | NUR ---
PT CALLS AND REQUEST STAND BY WHILE SHE USES BSC, PT VOIDED AND MOVED BACK TO BED W/O INCIDENT. BSC EMPTIED OF CLEAR YELLOW URINE. PT STATES "I GUESS IM GOING TO GET A PACEMAKER SATURDAY", ASKED PT IF SHE REMEMBERED DECLINING TRANSFER ON 01/28. PT STATES SHE DOES REMEMBER BUT "I GUESS IF I HAVE TO HAVE IT I'LL HAVE IT". WILL ENDORSE TO NEXT SHIFTS NURSE. PT DENIES FURTHER NEEDS. CALL DODSON WITHIN REACH, AGREES TO CALL PRN.
--- NOTE | 2020-01-30 02:27 | NUR ---
PT APPEARS TO BE SLEEPING COMFORTABLY, NO APPARENT DISTRESS, RESPIRATIONS REGULAR AND UNLABORED. CALL DODSON REMAINS WITHIN REACH.
--- NOTE | 2020-01-30 04:06 | NUR ---
PT SITTING UP AT SIDE OF BED, WATCHING TV. DENIES NEEDS AT THIS TIME. CALL BEL WITHIN REACH, AGREES TO CALL PRN.
--- NOTE | 2020-01-30 07:50 | NUR ---
PT RESTING IN BED, NO SIGNS OF DISTRESS NOTED, PT RETURNED FROM BSC TO BED SOB ON EXERTION, FAN PROVIDED. DISCUSSED POC, RESP EVEN AND UNLABORED. PT ALERT AND ORIENTED X3, PT HAS DRY CRACKED FEET, LOTION APPLIED. TRACE EDEMA TO BLE, 02 5L NC, ASSESSMENT COMPLETED, CALL LIGHT IN REACH,CONTINUE TO MONITOR.
[2020-01-30 10:00] LABS: HEMATOCRIT 40.8 % (37.0-47.0); HEMOGLOBIN 12.9 g/dl (12.0-16.0); IMMATURE GRANULOCYTES 1.2 % (0.0-5.0); MEAN CELL VOLUME 90.7 fL CALC (80.0-100.0); MEAN CORPUSCULAR HGB 28.7 pG CALC (26.0-32.0); MEAN CORPUSCULAR HGB CONC 31.6 g/dL CAL (32.0-36.0); NEUT# 4.43 thou/uL (2.00-7.15); RED BLOOD COUNT 4.5 mill/uL (4.20-5.60); RED CELL DISTRI WIDTH 12.5 % (11.5-15.5)
--- NOTE | 2020-01-30 10:00 | NUR ---
DAUGHTER ARRIVED TO BEDSIDE, DISCUSSED POC WITH DAUGHTER. PT ASSISTED TO RECLINER AT BEDSIDE, CALL LIGHT IN REACH,CONTINUE TO MONITOR.
[2020-01-30 10:20] LABS: ANION GAP 11 (6-22 (CALC)); BUN 31 mg/dL (8-23); BUN/CREATININE RATIO 50 (12-20 (CALC)); CARBON DIOXIDE 27 mmol/l (22-30); CHLORIDE 101 mmol/l (95-108); CREATININE 0.6 mg/dL (0.5-1.0); GFR > 60 ML/MIN (>=60 (CALC)); GFR FOR AFR.AMER. > 60 ML/MIN (>=60 (CALC)); MAGNESIUM 2.2 mg/dL (1.6-2.3); POTASSIUM 4.2 mmol/l (3.5-5.1); SODIUM 135 mmol/l (137-146)
--- NOTE | 2020-01-30 11:26 | NUR ---
AND MACHINE SHORTHAND REPORTER AT BEDSIDE WITH PT TO DISCUSS POC
--- NOTE | 2020-01-30 14:29 | NUR ---
PT SITTING IN RECLINER, INFORMED PT OF ACCEPTING PHYSICIAN AT [facility] AND ROOM NUMBER, CALL MADE TO DAUGHTER AND DISCUSSED WITH HER WELL. CALL LIGHT IN REACH,CONTINUE TO MONITOR.
--- NOTE | 2020-01-30 15:30 | NUR ---
[facility] ARRIVED TO TRANSPORT PT, PT KANCHAN AND MEDICATIONS SENT WITH PT.
--- NOTE | 2020-01-30 15:53 | NUR ---
REPORT CALLED TO CAMMY AT [facility] [phone].
== END 2020-01-30 15:30 | disposition short-term general hospital (02) | DRG 178 ==
LOC: ED 11:23 → ED-I 14:40 → ED 15:08 → ICU 15:09 → MS2 15:09 → ICU 01-26 03:34
PROVIDERS: Emergency Medicine; Internal Medicine Hematology & Oncology; Nurse Practitioner; ADMIT Internal Medicine; ATTEND Internal Medicine
PROC: XW033E5 Introduction of Remdesivir Anti-infective into Peripheral Vein, Percutaneous Approach, New Technology Group 5 (ICD-10-PCS; principal; 2020-01-26)
DX: U07.1 COVID-19 (principal); J44.1 Chronic obstructive pulmonary disease with (acute) exacerbation; N39.0 Urinary tract infection, site not specified; Z16.12 Extended spectrum beta lactamase (ESBL) resistance; R00.0 Tachycardia, unspecified; I10 Essential (primary) hypertension; E03.9 Hypothyroidism, unspecified; I25.10 Atherosclerotic heart disease of native coronary artery without angina pectoris; K21.9 Gastro-esophageal reflux disease without esophagitis; I27.20 Pulmonary hypertension, unspecified; K52.9 Noninfective gastroenteritis and colitis, unspecified; G70.00 Myasthenia gravis without (acute) exacerbation; D72.810 Lymphocytopenia; T45.1X5A Adverse effect of antineoplastic and immunosuppressive drugs, initial encounter; B96.20 Unspecified Escherichia coli [E. coli] as the cause of diseases classified elsewhere; Z85.3 Personal history of malignant neoplasm of breast; Z99.81 Dependence on supplemental oxygen; Z79.899 Other long term (current) drug therapy; Z87.891 Personal history of nicotine dependence
CPT/HCPCS: J1650; J1956; J3475; J7626

== ENCOUNTER 2022-05-08 14:34 | Inpatient (IN) | payer MEDICARE ==
[~2022-05-08] VITALS: Ht 157.5 cm; Wt 82.8 kg
[2022-05-08] VITALS (18 sets, daily range): BP systolic 91–174; BP diastolic 55–139
[~2022-05-08 14:34] MED LIST changes: +ELIQUIS5 MG PO; +METOPROL TAR25 MG PO
--- NOTE | 2022-05-08 14:50 | NUR ---
PATIENT BROUGHT INTO TRIAGE ROOM TO ASSESS AND COLLECT SWABS FROM. EKG PERFORMED. PROVIDER NOTIFIED OF PATIENT STATUS.
[2022-05-08 15:25] LABS: BASO% 0.1 % (0-3); EOS% 0.1 % (0-8); HEMATOCRIT 42.4 % (37.0-47.0); HEMOGLOBIN 13.4 g/dl (12.0-16.0); IMMATURE GRANULOCYTES 0.3 % (0.0-5.0); LYMPH% 9.2 % (15-41); MEAN CELL VOLUME 92.8 fL CALC (80.0-100.0); MEAN CORPUSCULAR HGB 29.3 pG CALC (26.0-32.0); MEAN CORPUSCULAR HGB CONC 31.6 g/dL CAL (32.0-36.0); MONO% 10.9 % (2-13); NEUT# 5.99 thou/uL (2.00-7.15); NEUT% 79.4 % (42-76); RED BLOOD COUNT 4.57 mill/uL (4.20-5.60); RED CELL DISTRI WIDTH 12.9 % (11.5-15.5)
[2022-05-08 15:42] LABS: ALBUMIN 4.8 g/dL (3.2-5.0); ALKALINE PHOSPHATASE 65 u/l (38-126); ANION GAP 14 (6-22 (CALC)); BUN 20 mg/dL (8-23); BUN/CREATININE RATIO 26 (12-20 (CALC)); CARBON DIOXIDE 31 mmol/l (22-30); CHLORIDE 99 mmol/l (95-108); CREATININE 0.8 mg/dL (0.5-1.0); GFR FOR AFR.AMER. > 60 ML/MIN (>=60 (CALC)); GFR OTHER RACES > 60 ML/MIN (>=60 (CALC)); POTASSIUM 4.2 mmol/l (3.5-5.1); SGOT/AST 34 u/l (9-36); SODIUM 139 mmol/l (137-146); TOTAL PROTEIN 7.4 g/dL (6.3-8.2)
[2022-05-08 15:46] LABS: BILIRUBIN, TOTAL 0.7 mg/dL (0.0-1.4)
--- NOTE | 2022-05-08 16:04 | NUR ---
RESPIRATORY BEDSIDE FOR BREATHING TREATMENT
--- NOTE | 2022-05-08 16:37 | NUR ---
assisted patient to chair. iv bolus of diltiazem and running drip at 5 ml /hr per
--- NOTE | 2022-05-08 16:40 | NUR ---
iv drip of cardizem titrated to 10 ml/hr md notified patient tachycardic and hypertensive
--- NOTE | 2022-05-08 16:58 | NUR ---
RECONCILED MEDICATIONS WITH PATIENT. PROVIDED SOMETHING TO DRINK. PATIENT RESTING IN CHAIR. WARM BLANKET PROVIDED
--- NOTE | 2022-05-08 17:43 | NUR ---
PATIENT SITTING IN CHAIR RESTING. HR AND BP STABLE. NO ACUTE DISTRESS NOTED. PATIENT DOES NOT WISH TO TRANSFER TO BED AT THIS TIME. SHE STATES SHE IS COMFORTABLE AND HAS NO COMPLAINTS
--- NOTE | 2022-05-08 18:26 | NUR ---
ASSISTED PT TO THE BEDSIDE COMMODE, PT TOLERATED WELL.
--- NOTE | 2022-05-08 20:11 | NUR ---
PATIENT ALERT AND ORIENTED X3. NO S/S OF RESPIRATROY DISTRESS. dENIES ANY C/O PAIN. PATIENT TAKEN TO ICU TO ROOM 2 AND REPORT GIVEN TO NURSE. ALL BELONGINGS SENT WITH PATIENT
--- NOTE | 2022-05-08 20:15 | NUR ---
PATIENT ARRIVED TO FLOOR FROM ED AT THIS TIME. PATIENT ALERT AND ORIENTED AND WOULD ONLY LAY IN BED TO GET WEIGHED AT THIS TIME. PATIENT REFUSES TO LAY IN BED AND STATED "I WILL ONLY SIT IN A RECLINER AND REFUSES TO ALLOW CHAIR ALARM TO BE ATTACHED". PATIENT IS ALERT AND ORIENTED X 4. PATIENT PRESENTS TO FLOOR ON CARDIZEM DRIP AT 7ML/HR AND IS IN AFIB AT THIST TIME AND HR IS 96 BP IS 143/73 PATIENT VOIDED 200 MLS AT THIS TIME. PATIENT PRESENT WIHT 2+ PITTING EDEMA ON BILATERAL LOWER ANKLES AT THIS TIME AND BILATERAL LOWER LEGS ARE PINKISH IS COLOR AND PATIENT STATES THAT IS THER ALL THE TIME. LUNG SOUNDS ARE CLEAR IN UPPER BAHENA AND DIMINISHE IN MIDDLE AND LOWER BAHENA AT THIS TIME. PATIENT BOWEL SOUNDS ARE PRESENT IN ALL FOUR QUADS AND PATIENT STATES HER LAST BM WAS 05/08/22 IN AM AND THAT SHE ALWAYS HAS DIARREHA TYPE STOOLS. PATIENT WEARS PROTECTIVE PANTIES. PATIENT EXPLAINED AND SIGNED FALL POLICY CALL LIGHT AND PERSONAL ITEMS ARE WITHIN REACH AT THIS TIME. WILL CONTINUE TO MONITOR.
[2022-05-08] MEDS ORDERED: XARELTO20 MG PO (20:31)
[2022-05-08] MEDS ORDERED: REVATIO20 MG PO (20:32)
--- NOTE | 2022-05-08 22:06 | NUR ---
PATIENT REMAINS IN CHAIR AT THIS TIME. ARMORED TRANSPORT SERVICE MANAGER SHOWING AFIB HR AT 91 CALL LIGHT WITH IN REACH.
[2022-05-09] VITALS (17 sets, daily range): BP systolic 114–143; BP diastolic 55–90
--- NOTE | 2022-05-09 00:10 | NUR ---
PATIENT REMAINS IN RECLINER AT THIS TIME AND ASSISTED TO C PATIENT VOIDED 300ML OF URINE AT THIS TIME AND REASSISTED TO RECLINER. TEMP IS 97.6 PATIENT DENIES ANY PAIN. PATIENT STATES "IM ALWAYS UP AND DOWN ALL NIGHT LONG TO GO TO THE BATHROOM" PATIENT HAS BEEN UP X 5 SINCE ADMISSION. PATIENT IS ALERT AND ORIENTED X 3 PATTERN MARKING SUPERVISOR IS SHOWING AFIB AND HR OF 99. WILL CONTINUE TO MONITOR.
--- NOTE | 2022-05-09 02:05 | NUR ---
PATIENT RESTING IN CHAIR AT THIS TIME 02 REMAINS ON AT 4L NASAL CANNULA SPO2 IS 96% AT THIS TIME. PATIENT FLAQUITA ANY PAIN LEAD MINER BLASTING READING AFIB AND HR OF 86 BP IS CURRENTLY 121/90 MAP IS 96 CALL LIGHT IS WITHIN REACH PATIENT REMAINS IN RECLINER AT THIS TIME.
--- NOTE | 2022-05-09 04:01 | NUR ---
PATIENT REMAINS IN RECLINER NO COMPLAINTS AT THIS TIME ASSISTED TO BSC 200 ML OF URINE NOTED RETURNED TO CHAIR AT THIS TIME PULP DRIER READING AFIB AT 79 CALL LIGHT WITHIN REACH WILL CONTINUE TO MONITOR.
[2022-05-09 05:53] LABS: HEMATOCRIT 40.7 % (37.0-47.0); HEMOGLOBIN 13.2 g/dl (12.0-16.0); MEAN CELL VOLUME 92.3 fL CALC (80.0-100.0); MEAN CORPUSCULAR HGB 29.9 pG CALC (26.0-32.0); MEAN CORPUSCULAR HGB CONC 32.4 g/dL CAL (32.0-36.0); RED BLOOD COUNT 4.41 mill/uL (4.20-5.60); RED CELL DISTRI WIDTH 12.9 % (11.5-15.5)
--- NOTE | 2022-05-09 06:01 | NUR ---
PATIENT REMAINS IN RECLINER AT THIS TIME. CALL LIGHT WITHIN REACH WILL CONTINUE TO MONITOR.
[2022-05-09 06:05] LABS: ANION GAP 12 (6-22 (CALC)); BUN 16 mg/dL (8-23); BUN/CREATININE RATIO 27 (12-20 (CALC)); CARBON DIOXIDE 30 mmol/l (22-30); CHLORIDE 101 mmol/l (95-108); CREATININE 0.6 mg/dL (0.5-1.0); GFR FOR AFR.AMER. > 60 ML/MIN (>=60 (CALC)); GFR OTHER RACES > 60 ML/MIN (>=60 (CALC)); MAGNESIUM 1.9 mg/dL (1.6-2.3); POTASSIUM 4.1 mmol/l (3.5-5.1); SODIUM 138 mmol/l (137-146)
--- NOTE | 2022-05-09 10:00 | NUR ---
Cardizem drip discontinued. Pt. tolerated well; will continue to closely monitor.
[2022-05-09] MEDS ORDERED: MYCOPHENOLAT500 MG PO (16:45)
--- NOTE | 2022-05-09 18:16 | NUR ---
Pt. transferred to Med Surg. No signs of distress noted at this time. Bedside shift handoff provided to receiving RN; all questions answered. All personal belongings with pt., family informed, will continue to monitor.
[2022-05-10 00:21] VITALS: BP 134/68
[2022-05-10 04:20] VITALS: BP 127/46
[2022-05-10 05:05] LABS: HEMATOCRIT 41.5 % (37.0-47.0); HEMOGLOBIN 13.1 g/dl (12.0-16.0); MEAN CORPUSCULAR HGB 29.4 pG CALC (26.0-32.0); MEAN CORPUSCULAR HGB CONC 31.6 g/dL CAL (32.0-36.0); RED BLOOD COUNT 4.46 mill/uL (4.20-5.60)
[2022-05-10 05:17] LABS: ALBUMIN 4.3 g/dL (3.2-5.0); ALKALINE PHOSPHATASE 57 u/l (38-126); ANION GAP 12 (6-22 (CALC)); CARBON DIOXIDE 32 mmol/l (22-30); CHLORIDE 102 mmol/l (95-108); MAGNESIUM 2.1 mg/dL (1.6-2.3); POTASSIUM 4.1 mmol/l (3.5-5.1); SGOT/AST 35 u/l (9-36); SODIUM 142 mmol/l (137-146); TOTAL PROTEIN 6.8 g/dL (6.3-8.2)
[2022-05-10 05:22] LABS: BUN 23 mg/dL (8-23); BUN/CREATININE RATIO 35 (12-20 (CALC)); CREATININE 0.6 mg/dL (0.5-1.0); GFR FOR AFR.AMER. > 60 ML/MIN (>=60 (CALC)); GFR OTHER RACES > 60 ML/MIN (>=60 (CALC))
[2022-05-10 05:24] LABS: BILIRUBIN, TOTAL 0.3 mg/dL (0.0-1.4)
[2022-05-10 06:15] VITALS: BP 136/85
--- NOTE | 2022-05-10 06:15 | NUR ---
PT HAD AN UNEVENTFUL NIGHT. PT IS AFEBRILE, VSS, NO SIGNS AND SYMPTOMS OF DISTRESS NOTED. PT REMAINS ON 3 L NC. PT DENIES PAIN. ALL SAFETY MEASURES ARE IN PLACE. WILL CONTINUE TO MONITOR.
[2022-05-10 10:34] VITALS: BP 144/70
[2022-05-10] MEDS ORDERED: LOPRESSOR 550 MG/TAB PO (11:35)
[2022-05-10] MEDS ORDERED: LEVAQUIN750 M1 PO (11:42)
[2022-05-10] MEDS ORDERED: PREDNISONE10 MG PO (11:54)
[2022-05-10 14:54] VITALS: BP 115/58
== END 2022-05-10 16:25 | disposition home health service (06) | DRG 190 ==
LOC: ED 14:34 → ED-I 16:42 → ED 17:05 → ICU 17:06 → MS2 05-09 18:01
PROVIDERS: Family Medicine; ADMIT Internal Medicine; ATTEND Internal Medicine
DX: J44.1 Chronic obstructive pulmonary disease with (acute) exacerbation (principal); J96.21 Acute and chronic respiratory failure with hypoxia; I48.91 Unspecified atrial fibrillation; I10 Essential (primary) hypertension; E03.9 Hypothyroidism, unspecified; I25.10 Atherosclerotic heart disease of native coronary artery without angina pectoris; I27.20 Pulmonary hypertension, unspecified; G70.00 Myasthenia gravis without (acute) exacerbation; Z95.0 Presence of cardiac pacemaker; Z99.81 Dependence on supplemental oxygen; Z87.891 Personal history of nicotine dependence; Z20.822 Contact with and (suspected) exposure to COVID-19